=== PATIENT | female | born 1980 | race African-American/Black ===

== ENCOUNTER 2017-04-01 23:02 | Emergency (ER) | payer SELFPAY ==
--- NOTE | ~2017-04-01 | CT4 ---
[facility] A Service of [facility] & [facility] RADIOLOGY TEXT RESULTS PATIENT: MILLER FERNANDO LOCATION: [facility] : 76 UNIT #: [id number] AGE: [address]: Stephanie Kramer APRN SEX: F ORDER DR: [id number] [facility] [address] [place], [place] [address] [id number] MR#: [id number] Acc #: [id number] NAME: MILLER FERNANDO : 1980 SEX: F STUDY DATE/TIME: 04/02/2017 UNIT: [facility] ROOM: STUDY DESCRIPTION: CT Abd and Pelv Wo Cont Attending Physician: Stephanie Kramer A.P.R.N. Ordering Physician: Stephanie Kramer A.P.R.N. Primary Care Physician: Primary Care Physician No MEDICAL IMAGING REPORT This report is preliminary unless electronic signature is present EXAM CT abdomen and pelvis 04/02 at 01:31 INDICATIONS Left groin pain and low back pain with chills and fever that started yesterday. TECHNIQUE Axial noncontrast images were obtained through the abdomen and pelvis. Multiplanar reformats were obtained. Comparison made with 01/17/2013. The CT exam was performed with one or more of the following radiation dose reduction techniques: automatic exposure control, adjustment of mA and/or kV according to patient size, and iterative reconstruction. FINDINGS Abdomen: Lung bases are clear. Gallbladder unremarkable. No renal or ureteral stones are identified. There is no hydronephrosis. Parapelvic cyst suspected in the right kidney, unchanged. Unenhanced solid organs are otherwise unremarkable. Unopacified GI tract grossly normal. Pelvis: The appendix is normal. The remainder of the unopacified GI tract is normal as well. No lower ureteral stones are seen. There are multiple phleboliths in the pelvis. Solid pelvic organs are grossly normal. There is a trace amount of free fluid in the cul-de-sac which may be physiologic. IMPRESSION 1. No renal or ureteral stones. No hydronephrosis. 2. Grossly normal unopacified GI tract, including the appendix. 3. Trace free fluid in the pelvis, probably physiologic in a female STS. [facility] A Service of [facility] & [facility] RADIOLOGY TEXT RESULTS PATIENT: MILLER FERNANDO LOCATION: [facility] : 76 UNIT #: [id number] AGE: [address]: Stephanie Kramer APRN SEX: F ORDER DR: of this age. Dictated by... Michael Gibson Jr., M.D. THIS IS AN ELECTRONICALLY VERIFIED REPORT Michael Gibson Jr., M.D. at 04/03/2017 4:24 AM MIKO/dylan TD: 04/02/2017 07:52 JOB #: [id number] MEDICAL IMAGING REPORT Page 1 of 1 COPY
[~2017-04-01 23:02] MED LIST: CERTAGEN PO; DIAZEPAM; IBUPROFEN PO; LORTAB 10/500 T1 TAB PO; ORUDIS75 M1 PO; PEPCID AC20 MG PO; PERCOCET PO; PREDNISONE10 MG PO
[2017-04-02 00:14] LABS: URINE SOURCE CLEAN CATCH
[2017-04-02 00:30] LABS: URINE APPEARANCE CLOUDY; URINE BILIRUBIN NEG (NEG); URINE BLOOD 2+ (NEG); URINE COLOR YELLOW; URINE GLUCOSE NEG (NEG); URINE KETONE TRACE (NEG); URINE LEUKOCYTE ESTERASE 3+ (NEG); URINE NITRATE POS (NEG); URINE PROTEIN TRACE (NEG); URINE SPECIFIC GRAVITY 1.009 (1.003-1.035)
[2017-04-02 00:32] LABS: CULTURE INDICATED? YES; URINE BACTERIA AUWI 4+ (NEGATIVE); URINE SQUAMOUS EPITHELIAL CELL NONE SEEN /[HPF]; UWBCS1 AUWI 200-300 (0-5)
[2017-04-02 00:56] LABS: BASOPHIL% 0.3 % (0-2.5); EOSINOPHIL% 0.1 % (0.0-7.0); HEMOGLOBIN 12.7 gm/dL (12.0-16.0); LYMPHOCYTE# 1.2 X10e3 (1.0-3.5); LYMPHOCYTE% 10.7 % (17.0-45.0); MEAN CELL VOLUME 94.1 FL (83-96); MEAN CORPUSCULAR HEMOGLOBIN 30.6 PG (28-34); MEAN CORPUSCULAR HGB CONC 32.5 g/dL (30-36); MEAN PLATELET VOLUME 8.4 FL (6.5-11.5); MONOCYTE# 1.4 X10e3 (0-1.0); MONOCYTE% 12.6 % (3.0-12.0); NEUTROPHIL# 8.6 X10e3 (1.5-7.1); NEUTROPHIL% 76.3 % (40-75); PLATELET COUNT 228 X10e3 (140-420); RED BLOOD COUNT 4.15 X10e (3.90-5.30); RED CELL DISTRIBUTION WIDTH 13.9 % (11.0-15.5); WHITE BLOOD COUNT 11.2 X10e3 (4.0-10.5)
[2017-04-02 00:57] LABS: DIFF IND NO
[2017-04-02 01:26] LABS: BILIRUBIN, DIRECT 0.1 mg/dL (0.0-0.2); BILIRUBIN,INDIRECT 0.8 mg/dL (0.0-0.9); BILIRUBIN,TOTAL 0.9 mg/dL (0.2-2.0); BUN/CREATININE RATIO 8.88; CALCIUM SERUM 8.8 mg/dL (8.4-10.2); CREATININE SERUM 0.9 mg/dL (0.6-1.4); GLOM FILT RATE Estimated 94.1 mL/min (>60); POTASSIUM 3.3 mmol/L (3.5-5.1); PROTEIN TOTAL SERUM 7.5 g/dL (6.0-8.3)
== END 2017-04-02 03:04 | disposition home or self-care (01) ==
LOC: CED 23:02
PROVIDERS: Emergency Medicine
DX: N39.0 Urinary tract infection, site not specified (principal); F17.200 Nicotine dependence, unspecified, uncomplicated; Z98.51 Tubal ligation status
CPT/HCPCS: 36415; 74176; 80048; 80076; 81003; 83690; 84703; 85025; 87086; 87088; 87186; 96361; 96365; 96375; 99284; J0696; J1885; J2405